=== PATIENT | female | born 1945 | race Caucasian/White ===

== ENCOUNTER 2017-12-31 09:31 | Inpatient (IN) | payer MEDICARE ==
[~2017-12-31] VITALS: Ht 165.1 cm; Wt 55.5 kg
[~2017-12-31 09:31] MED LIST: ALPR-138 PO; LORT7.5T3 PO; METHTAB3 PO; POLY10O LEFT EYE; SOMA350T PO
[2017-12-31 09:39] VITALS: BP 168/88; PULSE 80; RESP 20; TEMP 97.9; O2SAT 99
[2017-12-31 09:52] VITALS: BP 165/96; PULSE 77; RESP 13; O2SAT 97
[2017-12-31] MEDS ORDERED: ZOLP10TA3 PO (10:05)
[2017-12-31] MEDS ORDERED: ESTE1TAB5 PO (10:05)
[2017-12-31] MEDS ORDERED: ALPR.25 PO (10:05)
[2017-12-31] MEDS ORDERED: HYDR-3583 PO (10:05)
[2017-12-31] MEDS ORDERED: LOVA10TA PO (10:05)
[2017-12-31] MEDS ORDERED: SODIUM CHLORIDE 0.9% FLUSH 10 ML FLUSH IVF PRN (11:00)
[2017-12-31 11:35] LABS: AUTOMATED NEUTROPHIL # 2.7 TH/MM3 (1.8-7.7); BASOPHIL % 0.8 % (0.0-2.0); EOSINOPHIL # 0.1 TH/MM3 (0-0.4); EOSINOPHIL % 2.6 % (0.0-4.0); HEMATOCRIT 42.1 % (35.0-46.0); HEMOGLOBIN 13.7 GM/DL (11.6-15.3); LYMPH % 19.1 % (9.0-44.0); LYMPHOCYTE # 0.7 TH/MM3 (1.0-4.8); MEAN CELL VOLUME 101.2 FL (80.0-100.0); MEAN CORPUSCULAR HGB CONC 32.6 % (32.0-36.0); MEAN PLATELET VOLUME 9.7 FL (7.0-11.0); MONO % 7.6 % (0.0-8.0); MONOCYTE # 0.3 TH/MM3 (0-0.9); NEUT % 69.9 % (16.0-70.0); PLATELET COUNT 224 TH/MM3 (150-450); RED BLOOD COUNT 4.16 MIL/MM3 (4.00-5.30); RED CELL DISTRIBUTION WIDTH 16.1 % (11.6-17.2); WHITE BLOOD COUNT 3.8 TH/MM3 (4.0-11.0)
--- NOTE | 2017-12-31 12:13 | RADRPT ---
EXAM DATE/TIME: 12/31/2017 11:07 [facility] COMPARISON: No previous studies available for comparison. INDICATIONS : Patient fell 5 days ago RADIATION DOSE: 56.35 CTDIvol (mGy) MEDICAL HISTORY : Hypertension. SURGICAL HISTORY : Hysterectomy. ENCOUNTER: Initial ACUITY: 4 - 6 days PAIN SCALE: 0/10 LOCATION: cranial TECHNIQUE: Multiple contiguous axial images were obtained of the head. Using automated exposure control and adj ustment of the mA and/or kV according to patient size, radiation dose was kept as low as reasonably a chievable to obtain optimal diagnostic quality images. DICOM format image data is available electro nically for review and comparison. FINDINGS: CEREBRUM: The ventricles are normal for age. No evidence of midline shift, mass lesion, hemorrhage or acute in farction. No extra-axial fluid collections are seen. POSTERIOR FOSSA: The cerebellum and brainstem are intact. The 4th ventricle is midline. The cerebellopontine angle i s unremarkable. EXTRACRANIAL: The visualized portion of the orbits is intact. SKULL: The calvaria is intact. No evidence of skull fracture. CONCLUSION: 1. No acute intracranial abnormality. Abhi Alonzo MD on December 31, 2017 at 11:24 Board Certified Radiologist. This report was verified electronically.
[2017-12-31 12:46] LABS: BACTERIA, URINE RARE /hpf; BILIRUBIN, URINE NEG (NEG); BLOOD, URINE NEG (NEG); GLUCOSE,URINE NEG (NEG); KETONE, URINE NEG (NEG); NITRITE,URINE NEG (NEG); PH, URINE 7.5 (5.0-8.5); SQUAMOUS EPITHELIAL CELL URINE 2 /hpf (0-5); URINE COLOR LIGHT-YELLOW (YELLW/STRAW); URINE LEUKOCYTE ESTERASE NEG (NEG)
[2017-12-31 12:57] LABS: INTERNATIONAL NORMALIZED RATIO 1.1 RATIO; PROTHROMBIN TIME - PATIENT 10.8 SEC (9.8-11.6)
[2017-12-31 13:00] VITALS: BP 165/93; PULSE 72; RESP 17; O2SAT 98
[2017-12-31 13:12] LABS: ALBUMIN 3.9 GM/DL (3.4-5.0); ALKALINE PHOSPHATASE 53 U/L (45-117); ALT (GPT) 28 U/L (10-53); AST (GOT) 26 U/L (15-37); BLOOD UREA NITROGEN 21 MG/DL (7-18); CALCIUM 8.4 MG/DL (8.5-10.1); CREATININE 0.73 MG/DL (0.50-1.00); GLOMERULAR FILTRATION RATE 79 ML/MIN (>89); GLUCOSE,RANDOM 75 MG/DL (74-106); SODIUM (NA) 142 MEQ/L (136-145); TOTAL BILIRUBIN ADULT 0.4 MG/DL (0.2-1.0); TOTAL PROTEIN 7.6 GM/DL (6.4-8.2)
[2017-12-31 13:13] LABS: BICARBONATE 26.6 MEQ/L (21.0-32.0); CHLORIDE 108 MEQ/L (98-107)
[2017-12-31 13:14] LABS: TROPONIN I LESS THAN 0.02 NG/ML (0.02-0.05)
--- NOTE | 2017-12-31 13:31 | PD ---
HPI Chief Complaint: Neuro Symptoms/ Deficits Time Seen by Provider: 10:43 Travel History International Travel<30 days: No Contact w/Intl Traveler<30days: No Traveled to known affect area: No History of Present Illness HPI This 72-year-old woman who presents to the emergency department complaining of left arm weakness, left leg weakness, fall 4 days ago. She otherwise pretty healthy. No history of stroke or TIA. She states 4 days ago she fell while from her car. Walking she is not sure what made her fall. Does not really recall tripping. Since that time she has noticed weakness especially in her left leg, and clumsiness and weakness in her left arm as well. No numbness or tingling. She states her gait is been a little bit unsteady. She otherwise had been feeling well and healthy. History Past Medical History Narrative Medical Anxiety Hypertension Hyperlipidemia History of tobacco use Social History Alcohol Use: Yes (WEEKENDS) Tobacco Use: No (QUIT 25 YRS) Allergies-Medications (Allergen,Severity, Reaction): Coded Allergies: No Known Allergies (Verified Adverse Reaction, Unknown, 12/31/17) Reported Meds & Prescriptions Reported Meds & Active Scripts Active Reported Estrogen-Methyltestos F.s. Tab (Estrogen,Karla/Me-Testosterone) 1.25 Mg-2.5 Mg Tablet 1 Tab PO DAILY Lovastatin 10 Mg Tab 10 Mg PO DAILY Hydrocodone-Acetaminophen 10-325 mg Tab 1 Tab PO Q12HR NEB PRN Zolpidem (Zolpidem Tartrate) 10 Mg Tab 10 Mg PO HS PRN Xanax (Alprazolam) 0.25 Mg Tab 0.25 Mg PO Q12HR PRN Review of Systems Except as stated in HPI: all other systems reviewed are Neg Physical Exam Narrative GENERAL: Well-appearing 72-year-old woman, no acute distress. SKIN: Focused skin assessment warm/dry. HEAD: Atraumatic. Normocephalic. EYES: Pupils equal and round. No scleral icterus. No injection or drainage. ENT: No nasal bleeding or discharge. Mucous membranes pink and moist. NECK: Trachea midline. No JVD. CARDIOVASCULAR: Regular rate and rhythm. No murmur appreciated. RESPIRATORY: No accessory muscle use. Clear to auscultation. Breath sounds equal bilaterally. GASTROINTESTINAL: Abdomen soft, non-tender, nondistended. Hepatic and splenic margins not palpable. MUSCULOSKELETAL: No obvious deformities. No clubbing. No cyanosis. No edema. NEUROLOGICAL: Awake and alert. No obvious cranial nerve deficits. No facial asymmetry. Sensation equal bilaterally. No pronator drift. Personal Driver strength symmetric. Sensation is equal in the upper extremities. Some dysmetria in the upper extremity's on the left. Significant weakness in the left lower extremity with drift. No sensory changes. A little bit of ataxia on heel-to- perez. PSYCHIATRIC: Appropriate mood and affect; insight and judgment normal. Data Data Last Documented VS Vital Signs Date Time Temp Pulse Resp B/P (MAP) Pulse Ox O2 Delivery O2 Flow Rate FiO2 12/31/17 09:52 77 13 165/96 (119) 97 Room Air 12/31/17 09:39 97.9 Orders Orders Electrocardiogram (12/31/17 ) Electrocardiogram (12/31/17 10:49) Prothrombin Time / Inr (Pt) (12/31/17 10:49) Act Partial Throm Time (Ptt) (12/31/17 10:49) Complete Blood Count With Diff (12/31/17 10:49) Comprehensive Metabolic Panel (12/31/17 10:49) Troponin I (12/31/17 10:49) Urinalysis - C+S If Indicated (12/31/17 10:49) Ct Brain W/O Iv Contrast(Rout) (12/31/17 10:49) Ecg Monitoring (12/31/17 10:49) Iv Access Insert/Monitor (12/31/17 10:49) Oximetry (12/31/17 10:49) Sodium Chloride 0.9% Flush (Ns Flush) (12/31/17 11:00) Urine Culture (12/31/17 12:04) Labs Laboratory Tests Test 12/31/17 11:01 12/31/17 12:04 12/31/17 12:13 12/31/17 12:33 White Blood Count 3.8 TH/MM3 Red Blood Count 4.16 MIL/MM3 Hemoglobin 13.7 GM/DL Hematocrit 42.1 % Mean Corpuscular Volume 101.2 FL Mean Corpuscular Hemoglobin 33.0 PG Mean Corpuscular Hemoglobin Concent 32.6 % Red Cell Distribution Width 16.1 % Platelet Count 224 TH/MM3 Mean Platelet Volume 9.7 FL Neutrophils (%) (Auto) 69.9 % Lymphocytes (%) (Auto) 19.1 % Monocytes (%) (Auto) 7.6 % Eosinophils (%) (Auto) 2.6 % Basophils (%) (Auto) 0.8 % Neutrophils # (Auto) 2.7 TH/MM3 Lymphocytes # (Auto) 0.7 TH/MM3 Monocytes # (Auto) 0.3 TH/MM3 Eosinophils # (Auto) 0.1 TH/MM3 Basophils # (Auto) 0.0 TH/MM3 CBC Comment DIFF FINAL Differential Comment Urine Color LIGHT-YELLOW Urine Turbidity CLEAR Urine pH 7.5 Urine Specific [place] 1.011 Urine Protein NEG mg/dL Urine Glucose (UA) NEG mg/dL Urine Ketones NEG mg/dL Urine Occult Blood NEG Urine Nitrite NEG Urine Bilirubin NEG Urine Urobilinogen LESS THAN 2.0 MG/DL Urine Leukocyte Esterase NEG Urine RBC 1 /hpf Urine Squamous Epithelial Cells 2 /hpf Urine Bacteria RARE /hpf Microscopic Urinalysis Comment CATH-CULTURE IND Blood Urea Nitrogen 21 MG/DL Creatinine 0.73 MG/DL Random Glucose 75 MG/DL Total Protein 7.6 GM/DL Albumin 3.9 GM/DL Calcium Level 8.4 MG/DL Alkaline Phosphatase 53 U/L Aspartate Amino Transf (AST/SGOT) 26 U/L Alanine Aminotransferase (ALT/SGPT) 28 U/L Total Bilirubin 0.4 MG/DL Sodium Level 142 MEQ/L Potassium Level 4.0 MEQ/L Chloride Level 108 MEQ/L Carbon Dioxide Level 26.6 MEQ/L Anion Gap 7 MEQ/L Estimat Glomerular Filtration Rate 79 ML/MIN Troponin I LESS THAN 0.02 NG/ML Prothrombin Time 10.8 SEC Prothromb Time International Ratio 1.1 RATIO Activated Partial Thromboplast Time 21.2 SEC [facility] Medical Decision Making Medical Screen Exam Complete: Yes Emergency Medical Condition: Yes Interpretation(s) My review of EKG: Normal sinus rhythm at a rate of 73, normal axis, normal intervals, no acute ischemia. LABS: CBC is unremarkable. CMP is unremarkable. Troponins negative. Coags unremarkable. UA unremarkable CT head negative Differential Diagnosis CVA, TIA, hemorrhage, injury, seizure, other Narrative Course Medical decision making 72-year-old woman presents to the emergency room complaining of strokelike symptoms. She looks well. Stroke symptoms are subtle but definite. Initial workup is negative. Recommend admission further evaluation for stroke, spoke with Dr. Gonsalez, will admit patient. Diagnosis Primary Impression: CVA (cerebral vascular accident) Admitting Information Admitting Physician Requests: Admit Marc Gerardo MD December 31, 2017 13:31
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
[2017-12-31] MEDS ORDERED: cloNIDine HCL 0.1 MG TAB PO PRN (14:30)
[2017-12-31] MEDS ORDERED: DEXTROSE 50% IN WATER 50 ML VIAL(D50) IV PUSH PRN (14:30)
[2017-12-31] MEDS ORDERED: ZOLPIDEM TARTRATE 10 MG TAB PO PRN (14:30)
[2017-12-31] MEDS ORDERED: ACETAMINOPHEN/HYDROcodone 325 MG/10 MG TAB PO PRN (14:30)
[2017-12-31] MEDS ORDERED: SODIUM CHLORIDE 0.9% FLUSH 10 ML FLUSH IV FLUSH PRN (14:30)
[2017-12-31] MEDS ORDERED: ALPRAZolam 0.25 MG TAB PO PRN (14:30)
[2017-12-31] MEDS ORDERED: GLUCAGON 1 MG/ML VIAL OTHER PRN (14:30)
[2017-12-31] MEDS ORDERED: ACETAMINOPHEN 325 MG TAB PO PRN (14:30)
[2017-12-31] MEDS ORDERED: ONDANSETRON HCL 4 MG/2 ML VIAL IV PRN (14:30)
[2017-12-31 16:00] VITALS: BP 155/82; PULSE 68; RESP 18; TEMP 98.4; O2SAT 100
[2017-12-31] MEDS: SODIUM CHLOR 0.9% 1000 ML INJ 1,000 ML IV SCH (16:18)
[2017-12-31] MEDS: ASPIRIN 81 MG CHEW TAB PO SCH (16:21)
--- NOTE | 2017-12-31 16:23 | RADRPT ---
EXAM DATE/TIME: 12/31/2017 15:44 [facility] COMPARISON: No previous studies available for comparison. INDICATIONS : Cerebrovascular accident. MEDICAL HISTORY : Hypertension. Anxiety. SURGICAL HISTORY : Hysterectomy. Bladder suspension. Cosmetic surgery. ENCOUNTER: Initial ACUITY: 2 days PAIN SCORE: 2/10 LOCATION: Bilateral neck PEAK SYSTOLIC VELOCITIES (cm/sec): ICA/CCA RATIO: Right: 0.9 Left: 1.0 ICA: Right: 91.9 Left: 93.6 CCA: Right: 106.2 Left: 90.3 ECA: Right: 63.3 Left: 60.7 VERTEBRAL: Right: 62.5 antegrade Left: 40.1 antegrade Elevated flow velocities and ICA/CCA ratios have been found to correlate with increased degrees of vessel stenosis, calculated as percentage of diameter relative to a normal segment of distal ICA/CCA FINDINGS: RIGHT CAROTID: No significant stenosis is visualized. The waveforms are within normal limits. LEFT CAROTID: No significant stenosis is visualized. The waveforms are within normal limits. VERTEBRAL ARTERIES: Antegrade flow is seen in both vertebral arteries. MISCELLANEOUS: None. CONCLUSION: 1. Minimal bilateral carotid plaque without flow limiting stenosis. 2. Antegrade vertebral artery flow bilaterally. Jeff Gonzalez MD on December 31, 2017 at 16:19 Board Certified Radiologist. This report was verified electronically.
[2017-12-31 16:26] LABS: HEMOGLOBIN A1C 4.9 % (4.3-6.0)
[2017-12-31] MEDS: INSULIN ASPART SUPPLEMENTAL SCALE SQ SCH ×2 (17:00→20:38)
--- NOTE | 2017-12-31 19:22 | RADRPT ---
EXAM DATE/TIME: 12/31/2017 18:23 [facility] COMPARISON: CT BRAIN W/O CONTRAST, December 31, 2017, 11:07. INDICATIONS : Left sided weakness. CVA. MEDICAL HISTORY : None. SURGICAL HISTORY : Hysterectomy. ENCOUNTER: Subsequent ACUITY: 1 day PAIN SCORE: 0/10 LOCATION: Head. TECHNIQUE: Multiplanar, multisequence MRI of the brain was performed without contrast. FINDINGS: CEREBRUM: There is a focal 1.3 cm area of signal abnormality on the diffusion weighted images at the right post erior paraventricular region adjacent to the posterior aspect of the body of the right lateral ventri marcos and a smaller 0.6 cm linear area in the posterior right basal ganglia. These demonstrate abnormal signal on the flair and ADC images. These are consistent with recent infarcts. The ventricles are no rmal for age. No evidence of midline shift, mass lesion, hemorrhage. No extraaxial fluid collection s are seen. The pituitary gland and suprasellar cistern are normal in configuration. WHITE MATTER: There are a few punctate areas of increased signal within the cerebral white matter. POSTERIOR FOSSA: The cerebellum and brainstem are intact. The 4th ventricle is midline. The cerebellopontine angle is unremarkable. The cerebellar tonsils are normal in position. EXTRACRANIAL: The visualized portions of the orbits and paranasal sinuses are unremarkable. CONCLUSION: 2 small focal areas of signal abnormality on the diffusion weighted images consistent with recent inf arcts of the right posterior paraventricular region and the posterior right basal ganglia. Veto Fragoso MD on December 31, 2017 at 19:15 Board Certified Radiologist. This report was verified electronically.
--- NOTE | 2017-12-31 19:23 | RADRPT ---
EXAM DATE/TIME: 12/31/2017 18:23 [facility] COMPARISON: No previous studies available for comparison. INDICATIONS : Left sided weakness. CVA. MEDICAL HISTORY : None. SURGICAL HISTORY : Hysterectomy. ENCOUNTER: Subsequent ACUITY: 1 day PAIN SCORE: 0/10 LOCATION: head. Please note a normal MRA of the brain does not entirely exclude the possibility of a small aneurysm, nor the possibility of distal intracranial vessel disease. TECHNIQUE: 3D time of flight MRA was performed. Source images, multiplanar STS MIP, and 3D volume MIP reconstru ctions were reviewed. FINDINGS: There is excellent visualization of the major intracranial arteries out to the second-order branch ve ssels. There is no evidence for aneurysm, vessel truncation or stenosis, and no evidence for vascula r malformation. CONCLUSION: Normal examination. Veto Fragoso MD on December 31, 2017 at 19:19 Board Certified Radiologist. This report was verified electronically.
[2017-12-31 20:00] VITALS: BP 167/77; PULSE 78; RESP 18; TEMP 98; O2SAT 95
[2017-12-31] MEDS: SODIUM CHLORIDE 0.9% FLUSH 10 ML FLUSH IV FLUSH SCH (20:47)
--- NOTE | 2017-12-31 22:10 | EKG ---
Date Performed: 12/31/2017 Time Performed: 10:00:34 PTAGE: 72 years EKG: Sinus rhythm POSSIBLE LEFT ATRIAL ENLARGEMENT BORDERLINE ECG PREVIOUS TRACING : 12/18/2011 10.59 Since the previous tracing, no significant change noted DOCTOR: Charli Nowak Interpretating Date/Time 12/31/2017 22:08:22
[2018-01-01] VITALS: BP 134/82; PULSE 78; RESP 18; TEMP 97.6; O2SAT 97
[2018-01-01 04:00] VITALS: BP 157/90; PULSE 71; RESP 18; TEMP 97.4; O2SAT 96
[2018-01-01] MEDS: SODIUM CHLOR 0.9% 1000 ML INJ 1,000 ML IV SCH (04:28)
[2018-01-01 08:00] VITALS: BP 159/76; PULSE 71; PULSE 72; RESP 18; TEMP 97.6; O2SAT 99
[2018-01-01] MEDS: INSULIN ASPART SUPPLEMENTAL SCALE SQ SCH (08:49)
[2018-01-01] MEDS: ASPIRIN 81 MG CHEW TAB PO SCH (08:50)
[2018-01-01] MEDS: SODIUM CHLORIDE 0.9% FLUSH 10 ML FLUSH IV FLUSH SCH (08:50)
[2018-01-01] MEDS ORDERED: PRAVASTATIN SOD 10 MG TAB PO SCH (09:00)
[2018-01-01 09:07] LABS: AUTOMATED NEUTROPHIL # 2.7 TH/MM3 (1.8-7.7); BASOPHIL % 0.9 % (0.0-2.0); EOSINOPHIL # 0.2 TH/MM3 (0-0.4); EOSINOPHIL % 4.3 % (0.0-4.0); HEMATOCRIT 43.1 % (35.0-46.0); HEMOGLOBIN 14.5 GM/DL (11.6-15.3); LYMPH % 22.6 % (9.0-44.0); LYMPHOCYTE # 0.9 TH/MM3 (1.0-4.8); MEAN CELL VOLUME 99.5 FL (80.0-100.0); MEAN CORPUSCULAR HEMOGLOBIN 33.5 PG (27.0-34.0); MEAN CORPUSCULAR HGB CONC 33.6 % (32.0-36.0); MEAN PLATELET VOLUME 9.2 FL (7.0-11.0); MONO % 6.9 % (0.0-8.0); MONOCYTE # 0.3 TH/MM3 (0-0.9); NEUT % 65.3 % (16.0-70.0); PLATELET COUNT 220 TH/MM3 (150-450); RED BLOOD COUNT 4.33 MIL/MM3 (4.00-5.30); WHITE BLOOD COUNT 4.1 TH/MM3 (4.0-11.0)
[2018-01-01 09:15] LABS: BICARBONATE 24.9 MEQ/L (21.0-32.0); CALCIUM 8.8 MG/DL (8.5-10.1); CREATININE 0.73 MG/DL (0.50-1.00); MAGNESIUM 2.3 MG/DL (1.5-2.5)
[2018-01-01 09:20] LABS: CHOLESTEROL/ HDL RATIO 2.52 RATIO; HDL CHOLESTEROL 69.8 MG/DL (40.0-60.0)
--- NOTE | 2018-01-01 09:24 | HHI.PR ---
Subjective Remarks Still with weakness in the RUE and RLE Slight headache this morning Objective Vitals Vital Signs Date Time Temp Pulse Resp B/P (MAP) Pulse Ox O2 Delivery O2 Flow Rate FiO2 01/01/18 04:00 97.4 71 18 157/90 (112) 96 01/01/18 00:00 97.6 78 18 134/82 (99) 97 12/31/17 20:00 98.0 78 18 167/77 (107) 95 12/31/17 16:00 98.4 68 18 155/82 (106) 100 12/31/17 15:46 12/31/17 13:00 72 17 165/93 (117) 98 Room Air 12/31/17 09:52 77 13 165/96 (119) 97 Room Air 12/31/17 09:39 97.9 80 20 168/88 (114) 99 Result Diagram: 01/01/18 0656 01/01/18 0656 Other Results Laboratory Tests Test 12/31/17 11:01 12/31/17 12:04 12/31/17 12:13 12/31/17 12:33 White Blood Count 3.8 TH/MM3 Red Blood Count 4.16 MIL/MM3 Hemoglobin 13.7 GM/DL Hematocrit 42.1 % Mean Corpuscular Volume 101.2 FL Mean Corpuscular Hemoglobin 33.0 PG Mean Corpuscular Hemoglobin Concent 32.6 % Red Cell Distribution Width 16.1 % Platelet Count 224 TH/MM3 Mean Platelet Volume 9.7 FL Neutrophils (%) (Auto) 69.9 % Lymphocytes (%) (Auto) 19.1 % Monocytes (%) (Auto) 7.6 % Eosinophils (%) (Auto) 2.6 % Basophils (%) (Auto) 0.8 % Neutrophils # (Auto) 2.7 TH/MM3 Lymphocytes # (Auto) 0.7 TH/MM3 Monocytes # (Auto) 0.3 TH/MM3 Eosinophils # (Auto) 0.1 TH/MM3 Basophils # (Auto) 0.0 TH/MM3 CBC Comment DIFF FINAL Differential Comment Hemoglobin A1c 4.9 % Urine Color LIGHT-YELLOW Urine Turbidity CLEAR Urine pH 7.5 Urine Specific [place] 1.011 Urine Protein NEG mg/dL Urine Glucose (UA) NEG mg/dL Urine Ketones NEG mg/dL Urine Occult Blood NEG Urine Nitrite NEG Urine Bilirubin NEG Urine Urobilinogen LESS THAN 2.0 MG/DL Urine Leukocyte Esterase NEG Urine RBC 1 /hpf Urine Squamous Epithelial Cells 2 /hpf Urine Bacteria RARE /hpf Microscopic Urinalysis Comment CATH-CULTURE IND Blood Urea Nitrogen 21 MG/DL Creatinine 0.73 MG/DL Random Glucose 75 MG/DL Total Protein 7.6 GM/DL Albumin 3.9 GM/DL Calcium Level 8.4 MG/DL Alkaline Phosphatase 53 U/L Aspartate Amino Transf (AST/SGOT) 26 U/L Alanine Aminotransferase (ALT/SGPT) 28 U/L Total Bilirubin 0.4 MG/DL Sodium Level 142 MEQ/L Potassium Level 4.0 MEQ/L Chloride Level 108 MEQ/L Carbon Dioxide Level 26.6 MEQ/L Anion Gap 7 MEQ/L Estimat Glomerular Filtration Rate 79 ML/MIN Troponin I LESS THAN 0.02 NG/ML Prothrombin Time 10.8 SEC Prothromb Time International Ratio 1.1 RATIO Activated Partial Thromboplast Time 21.2 SEC Test 01/01/18 06:56 White Blood Count 4.1 TH/MM3 Red Blood Count 4.33 MIL/MM3 Hemoglobin 14.5 GM/DL Hematocrit 43.1 % Mean Corpuscular Volume 99.5 FL Mean Corpuscular Hemoglobin 33.5 PG Mean Corpuscular Hemoglobin Concent 33.6 % Red Cell Distribution Width 15.0 % Platelet Count 220 TH/MM3 Mean Platelet Volume 9.2 FL Neutrophils (%) (Auto) 65.3 % Lymphocytes (%) (Auto) 22.6 % Monocytes (%) (Auto) 6.9 % Eosinophils (%) (Auto) 4.3 % Basophils (%) (Auto) 0.9 % Neutrophils # (Auto) 2.7 TH/MM3 Lymphocytes # (Auto) 0.9 TH/MM3 Monocytes # (Auto) 0.3 TH/MM3 Eosinophils # (Auto) 0.2 TH/MM3 Basophils # (Auto) 0.0 TH/MM3 CBC Comment DIFF FINAL Differential Comment Blood Urea Nitrogen 16 MG/DL Creatinine 0.73 MG/DL Random Glucose 72 MG/DL Calcium Level 8.8 MG/DL Magnesium Level 2.3 MG/DL Sodium Level 141 MEQ/L Potassium Level 3.7 MEQ/L Chloride Level 106 MEQ/L Carbon Dioxide Level 24.9 MEQ/L Anion Gap 10 MEQ/L Estimat Glomerular Filtration Rate 79 ML/MIN Triglycerides Level 51 MG/DL Cholesterol Level 176 MG/DL Imaging Last Impressions Head CT 5/16/18 1049 Signed Impressions: Service Date/Time: Sunday, December 31, 2017 11:07 - CONCLUSION: 1. No acute intracranial abnormality. Abhi Alonzo MD Head Magnetic Resonance Angiography 12/31/17 0000 Signed Impressions: Service Date/Time: Sunday, December 31, 2017 18:23 - CONCLUSION: Normal examination. Veto Fragoso MD Carotid Artery Ultrasound 12/31/17 0000 Signed Impressions: Service Date/Time: Sunday, December 31, 2017 15:44 - CONCLUSION: 1. Minimal bilateral carotid plaque without flow limiting stenosis. 2. Antegrade vertebral artery flow bilaterally. Jeff Gonzalez MD Brain MRI 12/31/17 0000 Signed Impressions: Service Date/Time: Sunday, December 31, 2017 18:23 - CONCLUSION: 2 small focal areas of signal abnormality on the diffusion weighted images consistent with recent infarcts of the right posterior paraventricular region and the posterior right basal ganglia. Veto Fragoso MD Last Impressions Head CT 12/31/17 1049 Signed Impressions: Service Date/Time: Sunday, December 31, 2017 11:07 - CONCLUSION: 1. No acute intracranial abnormality. Abhi Alonzo MD Objective Remarks GENERAL: NAD, AAOx3 CARDIO: Regular rate and rhythm. RESP: CTA bilaterally. No wheezes, rales, or rhonchi. ABD: +BS, soft, non-tender, nondistended. EXT: Extremities without clubbing, cyanosis, or edema. NEURO: Awake and alert. Difficulty with coordination of the left hand. Five out of 5 muscle strength in all muscle groups on the right side. LUE and LLE weakness. Normal speech. A/P Problem List: (1) Weakness of extremity ICD Codes: R29.898 - Other symptoms and signs involving the musculoskeletal system Status: Acute Plan: CVA Weakness in the left upper and lower extremity Lateral Nystagmus s/p fall - Pt is a 72 y/o WF with hyperlipidemia, anxiety, chronic back pain who presented to the ED at [facility] on 12/31/17 with complaints of left upper and LE weakness x 5 days. - She reports that on Friday morning, 12/26/17, she went to the beach and when she was leaving she walked back to the car and fell forward. There was no reported LOC. Following that fall she had pain and weakness in the left leg and arm. She has not felt steady walking and has felt off balance when walking since the fall. She feels that her left leg is heavier and has difficulty moving and coordinating that foot. Pt is left handed and has had difficulty with fine motor movements in the left hand.This morning she felt that she was having a fast heart rate with any activity. - Head CT in the ED was negative - EKG in the ER with NSR - ASA - IVF - MRI Brain (12/31) --> 2 small focal areas of signal abnormality on the diffusion weighted images consistent with recent infarcts of the right posterior paraventricular region and the posterior right basal ganglia. - MRA brain (12/31) --> Normal examination - Carotid US (12/31) --> Minimal bilateral carotid plaque without flow limiting stenosis. Antegrade vertebral artery flow bilaterally. - Holter monitor --> Pending - Telemetry with NSR - 2D echo --> Pending - Consult Neurology - PT/OT evaluations - Clonidine PRN - Hgb A1C is 4.9 and lipid panel is pending - Resume home cholesterol med - Supportive care - DVT prophylaxis with SCDs for now Chronic back pain - Resume home dose of [place] PRN Anxiety Insomnia - Resume home meds (2) Hyperlipidemia ICD Codes: E78.5 - Hyperlipidemia, unspecified Status: Chronic (3) Anxiety ICD Codes: F41.9 - Anxiety disorder, unspecified Status: Chronic (4) Chronic back pain ICD Codes: M54.9 - Dorsalgia, unspecified; G89.29 - Other chronic pain Status: Chronic Assessment and Plan Patient examined. Assessment and plan formulated with Cindy Joyner PA-C. I agree with the above. acute cva right bg area but 2 separate areas. suspicious for embolic dz but we have no proof of afib/ could be small vessel dz/atherosclerosis discussed with pt and daughter at length discussed with Dr Salguero. cont asa/statin. holter refer back to pcp to get event monitor. needs outpt pt/ot. f/u neuro. neuro asking me to start bp med will start low dose yosef and f/u pcp to titrate as needed. Cindy Joyner January 01, 2018 09:24 Alec Gonsalez MD January 01, 2018 13:56
[2018-01-01] MEDS ORDERED: ASPIRIN EC 81 MG TABEC PO ONE (09:30)
--- NOTE | 2018-01-01 12:16 | MB ---
cc: Ludivina Salguero MD DATE: 01/01/2018 DATE OF : 1945 IDENTIFYING DATA: 72 years old, female. REASON FOR CONSULTATION Left-sided weakness, stroke. HISTORY OF PRESENT ILLNESS: This is a pleasant 72-year-old woman with a history of anxiety, back pain chronic, hyperlipidemia, comes in with left-sided weakness for 5 days. She states she had a fall the day of her symptoms, went to the beach apparently that day and fell forward hen she walked back to the car, noticed the left side being weak, but she states that she was in denial. 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 There was some palpitations she states, fast heartbeat. She does not take an aspirin. PAST MEDICAL HISTORY: As stated. PAST SURGICAL HISTORY: Partial hysterectomy, wrist surgery, cosmetic surgeries. HOME MEDICINES: 1. Estrogen. 2. Lovastatin. 3. Hydrocodone with Tylenol. 4. Zolpidem. 5. Xanax. ALLERGIES: NONE REPORTED. SOCIAL HISTORY: Quit smoking over 40 years ago. He drinks 1-2 glasses alcohol on the weekends. No other substances. Does not take aspirin. PHYSICAL EXAMINATION: VITAL SIGNS: Temperature is 97.6, pulse 71, respiratory rate 18, blood pressure 159/76, sating at 99%. NECK: Supple. There are no carotid bruits. HEART: Regular. GENERAL: She is awake, alert. She is oriented. She is fluent. HEENT: Pupils are reactive. Face looks fairly symmetrical. Tongue midline. She does have a mild drift in the left arm and mild leg lag on the left leg, random alternating movements slower on the left cerebellar. On the right is normal. Toes: Withdraws. Reflexes symmetrical. Sensory normal. Gait is deferred to PT. LABORATORY DATA: Reviewed. CBC today is normal. PTT 21.2 yesterday. Chemistries: Her glucose is 72. Hemoglobin A1c 4.9. GFR 79. Triglycerides 51, cholesterol 176, LDL 96, HDL 59.8. Urine unremarkable. IMAGING: MRI brain shows 2 small diffusion weighted abnormalities over the right hemisphere. Carotid ultrasound: Some minimal plaquing, but no limiting stenosis. MRA was unremarkable. Her echo is still pending. IMPRESSION: Right hemispheric stroke with some left-sided residual weakness. RECOMMENDATIONS: Recommend starting her on aspirin therapy 325. Continue her Pravastatin. She should stop taking the estrogen. Permissible hypertension. Although her symptoms started 5 days ago, at this point I believe that it is safe to go ahead and treat her, just avoid hypotension. Her echo is pending. She will need Holter monitor. If that is negative, then prolonged outpatient would be beneficial since she did have some rapid heartbeat, palpitations. Hopefully, this was not atrial fibrillation. Continue PT, OT, speech therapy evaluation. SCDs, Lovenox for DVT prevention or heparin. Discharge planning once cleared by PT. Ludivina Salguero MD DF/CORDELL , 11:45 AM , 12:14 PM
[2018-01-01 12:50] VITALS: BP 152/92; PULSE 80; RESP 14; TEMP 97.9; O2SAT 97
[2018-01-01] MEDS ORDERED: LOVA40TA PO (13:30)
[2018-01-01] MEDS ORDERED: ASPI325T33 PO (13:30)
--- NOTE | 2018-01-01 13:32 | HHI.FF ---
Face to Face Verification Diagnosis: (1) Anxiety (2) Hyperlipidemia (3) Chronic back pain (4) Weakness of extremity (5) CVA (cerebral vascular accident) Physical Therapy Order: Evaluate and Treat, Improve ambulation, Strength and gait training Occupational Therapy Order: Evaluate and Treat, Gross motor coordination, Fine motor coordination Home Health Nursing Order: Medical education Nursing assessment with vital signs I have seen patient Shruthi Bonilla on 01/01/18. My clinical findings support the need for the requested home health care services because: Deconditioned w/ increased weakness I certify that my clinical findings support that this patient is homebound because: Unsteady gait/balance Cindy Joyner January 01, 2018 13:32 Alec Gonsalez MD January 01, 2018 14:13
--- NOTE | 2018-01-01 13:34 | HHI.DCPOC ---
Discharge Care Plan Diagnosis: (1) Anxiety (2) Hyperlipidemia (3) Chronic back pain (4) Weakness of extremity (5) CVA (cerebral vascular accident) Goals to Promote Your Health - Patient is to take Aspirin 325mg once daily - Patient is to take Lovastatin 40mg once daily - Patient is to followup with her PCP, Dr. Jack Pendleton, in 1 week, call for an appt - Patient is to followup with Dr. Salguero in 2 weeks, call for an appt. Directions to Meet Your Goals Take your medications as prescribed Follow your dietary instruction Follow activity as directed Keep your appointments as scheduled Take your immunizations and boosters as scheduled If your symptoms worsen call your PCP, if no PCP go to Urgent Care Center or Emergency Room Smoking is Dangerous to Your Health. Avoid second hand smoke Call the 24-hour hour crisis hotline for domestic abuse at Cindy Joyner January 01, 2018 13:34
--- NOTE | 2018-01-01 14:07 | ECHRPT ---
Indication: CVA/TIA CONCLUSIONS The left ventricular systolic function is normal with an estimated ejection fraction in the range of 60-65%. Normal left ventricular size. Mild concentric left ventricular hypertrophy. No regional wall motion abnormalities are present. Trace mitral valve regurgitation. There is trace tricuspid valve regurgitation. The estimated pulmonary arterial pressure is 26 mmHg. Trace aortic valve regurgitation. BP: 157 / 90 HR: 71 Rhythm: Sinus MEASUREMENTS (Male / Female) Normal Values Technical Quality:Fair 2D ECHO LV Diastolic Diameter PLAX 3.4 cm 4.2 - 5.9 / 3.9 - 5.3 cm LV Systolic Diameter PLAX 2.5 cm IVS Diastolic Thickness 1.3 cm 0.6 - 1.0 / 0.6 - 0.9 cm LVPW Diastolic Thickness 1.2 cm 0.6 - 1.0 / 0.6 - 0.9 cm LV Relative Wall Thickness 0.7 RV Internal Dim ED PLAX 2.6 cm LVOT Diameter 1.8 cm LA Systolic Diameter LX 2.7 cm 3.0 - 4.0 / 2.7 - 3.8 cm LV Ejection Fraction MOD 4C 57.1 % LV Cardiac Index MOD 4C 926.1 cm/minm LV Ejection Fraction 4C AL 57.4 % LV Cardiac Index 4C AL 907.7 cm/minm M-MODE Aortic Root Diameter MM 2.0 cm LA Systolic Diameter MM 2.4 cm LA Ao Ratio MM 1.2 AV Cusp Separation MM 1.7 cm DOPPLER AV Peak Velocity 115.0 cm/s AV Peak Gradient 5.3 mmHg AI Peak Velocity 175.0 cm/s AI Peak Gradient 12.3 mmHg AI Pressure Half Time 1497.0 ms LVOT Peak Velocity 91.3 cm/s LVOT Peak Gradient 3.3 mmHg AV Area Cont Eq pk 2.0 cm MV Area PHT 2.3 cm Mitral E Point Velocity 47.9 cm/s Mitral A Point Velocity 59.7 cm/s Mitral E to A Ratio 0.8 LV E' Lateral Velocity 5.2 cm/s Mitral E to LV E' Lateral Ratio 9.3 LV E' Septal Velocity 4.2 cm/s Mitral E to LV E' Septal Ratio 11.4 TR Peak Velocity 202.0 cm/s TR Peak Gradient 16.3 mmHg Right Atrial Pressure 10.0 mmHg Pulmonary Artery Systolic Pressu 26.3 mmHg Right Ventricular Systolic Press 26.3 mmHg PV Peak Velocity 66.5 cm/s PV Peak Gradient 1.8 mmHg FINDINGS LEFT VENTRICLE The left ventricular systolic function is normal with an estimated ejection fraction in the range of 60-65%. Normal left ventricular size. Mild concentric left ventricular hypertrophy. No regional wall motion abnormalities are present. RIGHT VENTRICLE Normal right ventricular size and systolic function. LEFT ATRIUM The left atrial size is normal. RIGHT ATRIUM The right atrial size is normal. ATRIAL SEPTUM Normal atrial septal thickness without atrial level shunting by limited color doppler interrogation. AORTA The aortic root and proximal ascending aorta are normal in size on limited imaging. MITRAL VALVE Structurally normal mitral valve. Trace mitral valve regurgitation. AORTIC VALVE Trileaflet aortic valve. Trace aortic valve regurgitation. TRICUSPID VALVE Structurally normal tricuspid valve. There is trace tricuspid valve regurgitation. The estimated pulmonary arterial pressure is 26 mmHg. PULMONARY VALVE No pulmonary valve regurgitation or stenosis. VESSELS The inferior vena cava is normal in size. PERICARDIUM No pericardial effusion. Kamaljit Alvarez MD (Electronically Signed) Final Date:01 Jan 2018 14:06
[2018-01-01] MEDS ORDERED: WALKER WHEELS/F1 MIS (15:49)
[2018-01-01 16:00] VITALS: BP 159/58; PULSE 68; RESP 18; TEMP 97.9; O2SAT 96
[2018-01-01] MEDS ORDERED: LISI2.5T3 PO (16:14)
[2018-01-01] MEDS ORDERED: LISINOPRIL 5 MG TAB PO ONE (16:15)
[2018-01-02] MEDS ORDERED: ASPIRIN EC 325 MG TABEC PO SCH (09:00)
[2018-01-02] MEDS ORDERED: PRAVASTATIN SOD 40 MG TAB PO SCH (09:00)
== END 2018-01-01 18:05 | disposition home health service (06) | DRG 65 ==
LOC: NEPE 09:31 → NEDA 13:32 → N05A 15:58
PROVIDERS: ADMIT Hospitalist; ATTEND Hospitalist
DX: I63.9 Cerebral infarction, unspecified (principal); G81.94 Hemiplegia, unspecified affecting left nondominant side; I10 Essential (primary) hypertension; F41.9 Anxiety disorder, unspecified; E78.5 Hyperlipidemia, unspecified; G89.29 Other chronic pain; M54.9 Dorsalgia, unspecified; H55.09 Other forms of nystagmus; G47.00 Insomnia, unspecified; Z87.891 Personal history of nicotine dependence; Z91.81 History of falling
CPT/HCPCS: 70450; 70544; 70551; 80048; 80053; 80061; 81001; 82948; 83036; 83735; 84484; 85025; 85610; 85730; 87086; 93005; 93306; 93880; 99285; J7030